=== PATIENT | male | born 1970 | race Caucasian/White ===

== ENCOUNTER 2018-08-05 22:21 | Emergency (ER) | payer MEDICAID, OTHER ==
[~2018-08-05] VITALS: Ht 177.8 cm; Wt 128.0 kg
[2018-08-05 22:59] VITALS: Ht 177.8 cm; Wt 128.0 kg
[2018-08-06] MEDS ORDERED: SOD CHLORIDE 0.9% 1,000 ML IV STA (02:03)
[2018-08-06] MEDS ORDERED: LORAZEPAM 2 MG INJ IV ONE (02:30)
--- NOTE | 2018-08-06 04:50 | PSY ---
Date/Time of Note Date/Time of Note DATE: 08/06/18 TIME: 04:45 Psychiatric Subjective Eval Consent Pt consented to telemedicine: Yes Subjective Evaluation Patient location: emergency Chief Complaint: ANXIETY, AP X 2 DAYS, TRYING TO GET INTO DETOX PROGRAM; HX PTSD Allergies: Coded Allergies: No Known Allergy (Unverified , 08/06/18) Psychiatric Objective Eval Mental Status Examination: Laboratory Results Laboratory Tests Test 08/06/18 02:27 White Blood Count 10.8 10^3/ul Red Blood Count 4.41 10^6/ul Hemoglobin 13.3 g/dl Hematocrit 41.7 % Mean Corpuscular Volume 94.6 fl Mean Corpuscular Hemoglobin 30.2 pg Mean Corpuscular Hemoglobin Concent 31.9 g/dl Red Cell Distribution Width 15.0 % Platelet Count 307 10^3/UL Mean Platelet Volume 10.2 fl Immature Granulocytes % 0.400 % Neutrophils % 70.2 % Lymphocytes % 19.5 % Monocytes % 7.0 % Eosinophils % 2.3 % Basophils % 0.6 % Nucleated Red Blood Cells % 0.0 /100WBC Immature Granulocytes # 0.040 10^3/ul Neutrophils # 7.6 10^3/ul Lymphocytes # 2.1 10^3/ul Monocytes # 0.8 10^3/ul Eosinophils # 0.3 10^3/ul Basophils # 0.1 10^3/ul Nucleated Red Blood Cells # 0.0 10^3/ul Prothrombin Time 11.6 Sec Prothrombin Time Ratio 0.9 INR International Normalized Ratio 0.84 Sodium Level 143 mmol/L Potassium Level 3.8 mmol/L Chloride Level 107 mmol/L Carbon Dioxide Level 23 mmol/L Anion Gap 13 Blood Urea Nitrogen 16 mg/dl Creatinine 0.73 mg/dl Est Glomerular Filtrat Rate mL/min > 60 mL/min Glucose Level 115 mg/dl Calcium Level 9.2 mg/dl Total Bilirubin 0.2 mg/dl Direct Bilirubin 0.00 mg/dl Indirect Bilirubin 0.2 mg/dl Aspartate Amino Transf (AST/SGOT) 45 IU/L Alanine Aminotransferase (ALT/SGPT) 61 IU/L Alkaline Phosphatase 55 IU/L Total Protein 7.8 g/dl Albumin 4.4 g/dl Globulin 3.40 g/dl Albumin/Globulin Ratio 1.29 Lipase 68 U/L Assessment and Plan Recommendation/Plan Discharge Disposition: Psychiatric inpatient Legal Status: Place involuntary hold Assessment Additional comments: IDENTIFYING INFORMATION: 48 year old Male patient who is currently located at the hospital and for whom psychiatric consultation was requested. SOURCES OF INFORMATION: The patient who appears to be somewhat reliable and the medical records; the nursing staff. CHIEF COMPLAINT: "I was in residential". HISTORY OF PRESENT ILLNESS: The patient was interviewed via telemedicine in the presence of and under the supervision of nursing staff of the hospital. The consent to conducting this interview via telemedicine was obtained by the nursing staff at the hospital. ANNA MARIE Mas reports that the patient presented with anxiety, increased speech, FOI in the context of meth use. The patient reports having no idea why he is at the hospital. Admits that people are after him, and he was thinking of harming the people who are after him; reporst that he would "send bombs". The patient denies having SI. The patient reports drinking alcohol occasionally. Last drink was "10 minutes ago". The patient denies using alcohol heavily or regularly. The patient reports using opiates at times daily. The patient denies using any other substances. In terms of past psychiatric history, the patient reports having a history of past psychiatric hospitalizations. The patient reports having a history of past suicide attempts. PAST MEDICAL HISTORY: HepC. CURRENT MEDICATIONS: none. ALLERGIES TO MEDICATIONS: NKDA. LABORATORY TESTS: CBC with Hb 13.3, Hct 41.7, CMP wnl, UDS pending, alcohol level pending. SOCIAL HISTORY: lives with roommates, unable to assess further. REVIEW OF SYSTEMS: Constitutional (e.g., fever, weight loss): negative; Eyes, Ears, Nose, Mouth, Throat: negative; Cardiovascular: negative; Respiratory: negative; Gastrointestinal: negative; Genitourinary: negative; Musculoskeletal: negative; Integumentary (skin and/or breast): negative; Neurological: negative; Psychiatric: as per HPI; Endocrine: negative; Hematologic/Lymphatic: negative; Allergic/Immunologic: negative. MENTAL STATUS EXAMINATION: General Appearance and Behavior: restless, appears to be responding to internal stimuli, partially cooperative with the interview, distant with the current interviewer, makes poor eye contact, poorly groomed, increased psychomotor activity, no abnormal movements noted. Speech: Normal rate, regular rhythm, normal latency, normal volume. Flow of thought: tangential, illogical, not goal-directed. Content of thought: denies auditory hallucinations, + paranoid delusions, no visual hallucinations, no suicidal ideation; positive for homicidal ideation, Mood: "fine". Affect: somewhat euphoric, decreased range of reactivity. Attention: normal based on the interview. Insight: poor. Judgment: poor. Memory: normal based on the interview. Sensorium: alert and oriented to person, date, place. ASSESSMENT: The patient's presentation and history are consistent with the diagnosis of unspecified psychotic disorder, stimulant use disorder. The patient presents with an exacerbation of psychosis in the context of medication noncompliance, psychosocial stressors and substance use. PLAN: - Medication management: Would start zyprexa 5 mg po bid. Would start haloperidol 5 mg IM PRN severe agitation q4 hours. Would start diphenhydramine 50 mg IM PRN severe agitation q4 hours. Would start lorazepam 2 mg IM PRN severe agitation q4 hours Will defer to the inpatient psychiatry team for other medication changes. - Labs: No other laboratory tests are needed at this time. - Psychotherapy: Provided supportive psychotherapy and psychoeducation. - Disposition: Would recommend involuntary admission to the inpatient psychiatric unit given the severity of the patient's psychiatric condition and the fact that the patient is an imminent danger to self and/or others so long as the patient has been cleared medically for admission to psychiatry. Inpatient psychiatric admission is at this time the least restrictive environment where the patient can receive the psychiatric care that is needed. Would place on suicide precautions. The patient fulfills criteria for being placed on an involuntary hold for being a danger to others due to a psychiatric disorder. Discussed about the above plan with Dr. Mcnamara. ANANT WHEAT MD Aug 06, 2018 04:50
[2018-08-06] MEDS ORDERED: OLANZAPINE 5 MG TAB PO ONE (05:00)
--- NOTE | 2018-08-06 05:00 | ERD ---
ER Documentation Chief Complaint Chief Complaint ANXIETY, AP X 2 DAYS, TRYING TO GET INTO DETOX PROGRAM; HX PTSD HPI This is a 48-year-old male with anxiety. He feels that people are trying to get him. He says he is going to send forms to these people. Patient is obviously very psychotic. He states he has not been taking his psychiatric medications as prescribed. Further history is difficult secondary to patient's psychotic nature ROS All systems reviewed and are negative except as per history of present illness. Medications Home Meds No Active Prescriptions or Reported Meds Allergies Allergies: Coded Allergies: No Known Allergy (Unverified , 08/06/18) PMhx/Soc Medical and Surgical Hx: pt denies Medical Hx, pt denies Surgical Hx History of Surgery: No (SCREWS IN R INDEX FINGER, WRIST.) Anesthesia Reaction: No Hx Neurological Disorder: No Hx Respiratory Disorders: No Hx Cardiac Disorders: No Hx Alcohol Use: Yes (EVERY DAY, VODKA) Hx Substance Use: Yes (METHAMPHETAMINES) Hx Tobacco Use: Yes Smoking Status: Current every day smoker Physical Exam Vitals Vital Signs Date Temp Pulse Resp B/P (MAP) Pulse Ox O2 O2 Flow FiO2 Time Delivery Rate 08/06/18 98.8 97 16 97/64 (75) 100 Room Air 02:34 08/05/18 99.4 119 18 167/94 100 22:59 (118) Physical Exam Const: No acute distress Head: Atraumatic Eyes: Normal Conjunctiva ENT: Normal External Ears, Nose and Mouth. Neck: Full range of motion. No meningismus. Resp: Clear to auscultation bilaterally Cardio: Regular rate and rhythm, no murmurs Abd: Soft, non tender, non distended. Normal bowel sounds Skin: No petechiae or rashes Back: No midline or flank tenderness Ext: No cyanosis, or edema Neur: Awake and alert Psych: Normal Mood and Affect Result Diagram: 08/06/1822608/06/18226 Results 24 hrs Laboratory Tests Test 08/06/18 02:27 White Blood Count 10.8 10^3/ul Red Blood Count 4.41 10^6/ul Hemoglobin 13.3 g/dl Hematocrit 41.7 % Mean Corpuscular Volume 94.6 fl Mean Corpuscular Hemoglobin 30.2 pg Mean Corpuscular Hemoglobin Concent 31.9 g/dl Red Cell Distribution Width 15.0 % Platelet Count 307 10^3/UL Mean Platelet Volume 10.2 fl Immature Granulocytes % 0.400 % Neutrophils % 70.2 % Lymphocytes % 19.5 % Monocytes % 7.0 % Eosinophils % 2.3 % Basophils % 0.6 % Nucleated Red Blood Cells % 0.0 /100WBC Immature Granulocytes # 0.040 10^3/ul Neutrophils # 7.6 10^3/ul Lymphocytes # 2.1 10^3/ul Monocytes # 0.8 10^3/ul Eosinophils # 0.3 10^3/ul Basophils # 0.1 10^3/ul Nucleated Red Blood Cells # 0.0 10^3/ul Prothrombin Time 12.1 Sec Prothrombin Time Ratio 0.9 INR International Normalized Ratio 0.89 Activated Partial Thromboplast Time 24.0 Sec Sodium Level 143 mmol/L Potassium Level 3.8 mmol/L Chloride Level 107 mmol/L Carbon Dioxide Level 23 mmol/L Anion Gap 13 Blood Urea Nitrogen 16 mg/dl Creatinine 0.73 mg/dl Est Glomerular Filtrat Rate mL/min > 60 mL/min Glucose Level 115 mg/dl Calcium Level 9.2 mg/dl Total Bilirubin 0.2 mg/dl Direct Bilirubin 0.00 mg/dl Indirect Bilirubin 0.2 mg/dl Aspartate Amino Transf (AST/SGOT) 45 IU/L Alanine Aminotransferase (ALT/SGPT) 61 IU/L Alkaline Phosphatase 55 IU/L Total Protein 7.8 g/dl Albumin 4.4 g/dl Globulin 3.40 g/dl Albumin/Globulin Ratio 1.29 Lipase 68 U/L Current Medications Medications Dose Sig/Dolores Start Time Status Last (Trade) Ordered Route PRN Stop Time Admin Dose Reason Admin Sodium 1,000 ml @ Q1H STAT 08/06/18 DC 08/06/18 Chloride 1,000 mls/hr IV 02:03 04:33 08/06/18 03:02 Lorazepam 2 mg ONCE ONCE 08/06/18 DC 08/06/18 (Ativan) IV 02:30 04:34 08/06/18 02:31 Procedures/MDM Emergency department course: Patient seen about by triage nurse. Placed on one-to-one watch for security. Had telemetry psychiatry consult. Medical decision making: Patient's behavioral symptoms have stabilized while in the department. Patient is medically cleared and appropriate for psychiatric evaluation and work up. No e/o neurologic, toxic, infectious, or metabolic cause. Recommended for 5150 hold by telemetry psychiatry. Start on Zyprexa 5 mg p.o. twice daily. Departure Diagnosis: Primary Impression: Psychosis Psychosis type: unspecified psychosis type Qualified Codes: F29 - Unspecified psychosis not due to a substance or known physiological condition Condition: Serious ZHENG PAULSON Aug 06, 2018 05:00
[2018-08-06] MEDS ORDERED: HALOPERIDOL 5 MG INJ IM STA (05:23)
--- NOTE | 2018-08-06 19:42 | CONS ---
Date/Time of Note Date/Time of Note DATE: 08/07/18 TIME: 04:26 Consult Date/Type/Reason Admit Date August 05, 2018 Initial Consult Date August 06, 2018 Type of Consult Psych Reason for Consult Reassment. Does pt continue to meet criteria for involuntary admission? Associated treatment recommendations Subjective Pt is difficult to wake up and engages minimally with my interview When asked where he is, he says that he in [place]. He says that the day is Friday. He struggles to stay awake and does not answer any other questions despite prompting from nursing staff. Per report, he received Zyprexa, Haldol, and Ativan over 12 hrs ago. Objective Patient Appearance: Poor Hygiene Voice Loudness: Monoloudness Mood and Affect Description: Unable to assess Mood or Affect: Unable to assess Speech Pattern: Unable to Assess Thought Process: Disoriented Hallucination Type: None Delusion Description: Not Present Assessment/Plan Problems: (1) Psychosis Recommendations Pt appears to be detoxing from methamphetamine. I am unable to complete my assessment given pt's limited participation in the interview. I am therefore unable to make any changes to previous disposition recommendations, including involuntary admission. Given his apparent degree of sedation, I would recommend discontinuing scheduled Zyprexa. May continue PRN haldol and ativan as previously recommended JOHNY RODRIGUEZ MD Aug 06, 2018 19:37
[2018-08-06 23:15] VITALS: BP 124/24; PULSE 90; RESP 16
== END 2018-08-06 23:30 | disposition home or self-care (01) ==
LOC: E/R 22:21
DX: F29 Unspecified psychosis not due to a substance or known physiological condition (principal); R40.2142 Coma scale, eyes open, spontaneous, at arrival to emergency department; R40.2362 Coma scale, best motor response, obeys commands, at arrival to emergency department; R40.2242 Coma scale, best verbal response, confused conversation, at arrival to emergency department; F17.210 Nicotine dependence, cigarettes, uncomplicated
CPT/HCPCS: 36415; 80053; 80307; 81003; 83690; 85025; 85610; 85730; 96372; 96374; J1630; J2060; J7030; Z7502; Z7610

== ENCOUNTER 2018-08-07 04:40 | Emergency (ER) | payer MEDICAID ==
[~2018-08-07] VITALS: Ht 180.3 cm; Wt 126.7 kg
[2018-08-07 04:41] VITALS: BP 148/59; PULSE 81; RESP 22; Ht 180.3 cm; Wt 126.7 kg
--- NOTE | 2018-08-07 05:22 | ERD ---
ER Documentation Chief Complaint Chief Complaint STATES NEEDS TO SEE A SHRINK, WANTS TO JUMP INFRONT OF BUS OR TRAIN HPI 48-year-old gentleman who was just seen and evaluated and discharged based on psychiatric evaluation and clearance. The patient returns for abdominal pain. In triage she reported some suicidal ideation however on my evaluation the patient states that he did not mean what he said at triage. He states that sometimes he feels that his life is difficult but at this time he is happy and "I want to make other people happy in my life joyous ". The patient also states that he has had at least 4 years of abdominal pain that is generalized, cramping. His last colonoscopy was greater than 10 years ago. He denies any hematemesis, melena, fevers or chills. Of his abdominal pain today is no different than chronic abdominal pain that he has had in the past. He states that "I just wanted to get it checked out ". ROS All systems reviewed and are negative except as per history of present illness. Medications Home Meds No Active Prescriptions or Reported Meds Allergies Allergies: Coded Allergies: No Known Allergy (Unverified , 08/06/18) PMhx/Soc History of Surgery: No (SCREWS IN R INDEX FINGER, WRIST.) Anesthesia Reaction: No Hx Neurological Disorder: No Hx Respiratory Disorders: No Hx Cardiac Disorders: No Hx Alcohol Use: Yes (EVERY DAY, VODKA) Hx Substance Use: Yes (METHAMPHETAMINES) Hx Tobacco Use: Yes FmHx Family History: No diabetes Physical Exam Vitals Vital Signs Date Temp Pulse Resp B/P (MAP) Pulse Ox O2 O2 Flow FiO2 Time Delivery Rate 08/07/18 98.0 81 22 148/59 96 04:41 (88) Physical Exam General: Well developed, well nourished, no acute distress Head: Normocephalic, atraumatic. Eyes: Pupils equally reactive, EOM intact ENT: Moist mucous membranes Neck: Supple, no lymphadenopathy Respiratory: Lungs clear bilaterally, no distress Cardiovascular: RRR, no murmurs, rubs, or gallops Abdominal: Soft, protuberant but nontender no rebound or guarding, no peritonitis, no tenderness to McBurney's point, no pulsatile mass, negative Dumont sign : Deferred MSK: No edema, no unilateral swelling, 5/5 strength Neurologic: Alert and oriented, moving all extremities, normal speech, no focal weakness, no cerebellar signs Skin: No rash Psych: Odd affect, denies SI or HI Procedures/MDM The patient was just seen here thoroughly evaluated and cleared from a psychiatric standpoint. At triage she noted some suicidal thoughts but he states that he did not mean that. He states that he is happy, joyful, denies SI or HI. I asked him multiple times and it was witnessed by the patient's nurse and PA student. At this point the patient does not appear to be a danger to himself or others. The patient is laughing, joking, drinking a Brisk Ice-T. The patient's abdominal pain is chronic. His abdominal exam is benign. I do not feel that CT imaging is necessary at this time given 4 years of symptoms. I believe outpatient follow-up with collaborating supervising physician for colonoscopy would be most appropriate. Patient exhibits no signs or symptoms concerning for acute intra-abdominal process. The patient does not have an identifiable emergent medical condition that warrants inpatient hospitalization at this time. The patient is deemed safe for discharge with outpatient follow-up. We discussed follow up with the patient's primary care doctor within 24 to 48 hours as needed. We also discussed return to the emergency room for worsening symptoms or worsening condition. Outpatient referral: Gastroenterology Discharge Medications: None required Departure Diagnosis: Primary Impression: Chronic abdominal pain Additional Impression: Encounter for medical screening examination Condition: Stable Patient Instructions: Abdominal Pain, Unkown Cause, (Male) Referrals: RENETTA VAUGHN MD, RON DESAI, SALEEM A MD [facility] YOU HAVE RECEIVED A MEDICAL SCREENING EXAM AND THE RESULTS INDICATE THAT YOU DO NOT HAVE A CONDITION THAT REQUIRES URGENT TREATMENT IN THE EMERGENCY DEPARTMENT. FURTHER EVALUATION AND TREATMENT OF YOUR CONDITION CAN WAIT UNTIL YOU ARE SEEN IN YOUR DOCTORS OFFICE WITHIN THE NEXT 1-2 DAYS. IT IS YOUR RESPONSIBILITY TO MAKE AN APPOINTMENT FOR FOLOW-UP CARE. IF YOU HAVE A PRIMARY DOCTOR --you should call your primary doctor and schedule an appointment IF YOU DO NOT HAVE A PRIMARY DOCTOR YOU CAN CALL OUR PHYSICIAN REFERRAL HOTLINE AT IF YOU CAN NOT AFFORD TO SEE A PHYSICIAN YOU CAN CHOSE FROM THE FOLLOWING FORMERLY [facility], [facility] [address] [facility] [address] [facility] [place] [facility] [address] [facility]. [facility] [address] [facility]. [facility] [address] [facility]. [facility]. [address] [facility]. [facility] YOU HAVE RECEIVED A MEDICAL SCREENING EXAM AND THE RESULTS INDICATE THAT YOU DO NOT HAVE A CONDITION THAT REQUIRES URGENT TREATMENT IN THE EMERGENCY DEPARTMENT. FURTHER EVALUATION AND TREATMENT OF YOUR CONDITION CAN WAIT UNTIL YOU ARE SEEN IN YOUR DOCTORS OFFICE WITHIN THE NEXT 1-2 DAYS. IT IS YOUR RESPONSIBILITY TO MAKE AN APPOINTMENT FOR FOLOW-UP CARE. IF YOU HAVE A PRIMARY DOCTOR --you should call your primary doctor and schedule and appointment IF YOU DO NOT HAVE A PRIMARY DOCTOR YOU CAN CALL OUR PHYSICIAN REFERRAL HOTLINE AT . IF YOU CAN NOT AFFORD TO SEE A PHYSICIAN YOU CAN CHOSE FROM THE FOLLOWING [facility] INSTITUTIONS: [facility] [address] [place] [address] [facility] [address] [place] [address] [facility] [address] [place] [address] Additional Instructions: You need to follow-up with a collaborating supervising physician for your chronic abdominal pain. Return if you have any thoughts of hurting yourself. MISAEL PERRY MD Aug 07, 2018 05:22
== END 2018-08-07 05:25 | disposition home or self-care (01) ==
LOC: E/R 04:40
DX: R10.9 Unspecified abdominal pain (principal); Z87.891 Personal history of nicotine dependence
CPT/HCPCS: 99282